=== PATIENT | male | born 1980 | race Caucasian/White ===

== ENCOUNTER 2022-10-27 15:20 | Emergency (ER) | payer SELFPAY ==
[~2022-10-27] VITALS: Ht 182.9 cm; Wt 79.4 kg
[2022-10-27] MEDS ORDERED: CEPHALEXIN500 M1 PO (16:22)
== END 2022-10-27 16:45 | disposition home or self-care (01) ==
LOC: ED 15:20
PROC: 0H98XZZ Drainage of Buttock Skin, External Approach (ICD-10-PCS; principal; 2022-10-27)
DX: L02.512 Cutaneous abscess of left hand (principal)
CPT/HCPCS: 10060; 99282-25; A9270